=== PATIENT | female | born 1975 | race Caucasian/White ===

== ENCOUNTER 2020-07-22 05:14 | Emergency (ER) | payer SELFPAY ==
[~2020-07-22] VITALS: Ht 157.4 cm; Wt 56.7 kg
[2020-07-22 06:06] LABS: BILIRUBIN NEGATIVE; BLOOD NEGATIVE (NEGATIVE); CLARITY CLEAR (CLEAR); COLOR YELLOW (YELLOW); GLUCOSE NEGATIVE; KETONE NEGATIVE; LEUKO ESTERASE NEGATIVE (NEGATIVE); NITRITE NEGATIVE (NEGATIVE); UROBILINOGEN 0.2 E.U./dl (0.0-1.0)
[2020-07-22 06:12] LABS: BACTERIA TRACE; WBC 0-2 wbc/hpf (0-5)
[2020-07-22] MEDS ORDERED: CIPRO500 MG PO (06:14)
== END 2020-07-22 06:17 | disposition home or self-care (01) ==
LOC: ED 05:14
PROVIDERS: Emergency Medicine
DX: L73.9 Follicular disorder, unspecified (principal); Z88.0 Allergy status to penicillin